=== PATIENT | male | born 1990 | race Caucasian/White ===

== ENCOUNTER 2020-02-26 15:01 | Emergency (ER) | payer BC ==
[2020-02-26] MEDS ORDERED: IBUPROFEN 600 MG TABLET PO ONE (15:16)
[2020-02-26] MEDS ORDERED: ACETAMINOPHEN 325 MG TABLET PO ONE (15:19)
--- NOTE | 2020-02-26 15:19 | ER Document Report ---
ED Medical Screen (RME) - General Chief Complaint: Puncture Wound Stated Complaint: LACERATION LEFT LEG Time Seen by Provider: 02/26/20 15:15 Mode of Arrival: Wheelchair Information source: Patient Notes: 29-year-old male presented to ED for puncture wound to the left lower leg. He states about 4 hours ago he was welding a a hot piece of round stock and when he was putting pressure on it he did not realize how much pressure the ground better went through his left lower leg red hot. He states he cannot get it to stay stop bleeding every time he tries to walk on it it bleeds. He states he can put some pressure on it but it causes it to bleed and is very painful. He states he went to the urgent care and they sent him straight to the emergency room. He states he does not smoke drinks maybe once a week and does not use any illicit drugs. He does weigh about 76 kg I did weigh him with the chair and and minus the chair. I have greeted and performed a rapid initial assessment of this patient. A comprehensive ED assessment and evaluation of the patient, analysis of test results and completion of medical decision making process will be conducted by an additional ED providers. Physical Exam - Vital signs Vitals: Temp Pulse Resp BP Pulse Ox 98.1 F 87 16 131/80 H 100 02/26/20 15:07 02/26/20 15:07 02/26/20 15:07 02/26/20 15:07 02/26/20 15:07 Course - Vital Signs Vital signs: Temp Pulse Resp BP Pulse Ox 98.1 F 87 16 131/80 H 100 02/26/20 15:07 02/26/20 15:07 02/26/20 15:07 02/26/20 15:07 02/26/20 15:07
--- NOTE | 2020-02-26 15:49 | RADIOLOGY REPORT (SQ) ---
EXAM DESCRIPTION: TIBIA FIBULA LEFT IMAGES COMPLETED DATE/TIME: 02/26/2020 3:34 pm REASON FOR STUDY: Puncture wound with a red hot wire @ 4 hours ago COMPARISON: None. NUMBER OF VIEWS: Two views. TECHNIQUE: Two radiographic images acquired of the left tibia and fibula to include the knee and ank le in at least one projection. LIMITATIONS: None. FINDINGS: MINERALIZATION: Normal. BONES: No acute fracture or dislocation. No worrisome bone lesions. SOFT TISSUES: No obvious swelling or foreign body. OTHER: No other significant finding. IMPRESSION: NEGATIVE STUDY OF THE LEFT TIBIA AND FIBULA. NO RADIOGRAPHIC EVIDENCE OF ACUTE INJURY. TECHNICAL DOCUMENTATION: JOB ID: [id number] 2010 [employer]- All Rights Reserved Reading location - IP/workstation name: [email or web address]
[2020-02-26] MEDS ORDERED: HYDROCODONE/ACETAMINOPHEN 5-325 MG (6 TAB/ER DISP) PO PRN (17:47)
[2020-02-26] MEDS ORDERED: HYDROCODONE/ACETAMINOPHEN 5-325 MG TABLET PO ONE (17:47)
--- NOTE | 2020-02-26 17:47 | ER Document Report ---
ED General - General Chief Complaint: Leg Injury Stated Complaint: LACERATION LEFT LEG Time Seen by Provider: 02/26/20 15:15 Mode of Arrival: Wheelchair Information source: Patient Notes: ED Medical Screen ([facility]) - General Chief Complaint: Puncture Wound Stated Complaint: LACERATION LEFT LEG Time Seen by Provider: 02/26/20 15:15 Mode of Arrival: Wheelchair Information source: Patient Notes: 29-year-old male presented to ED for puncture wound to the left lower leg. He states about 4 hours ago he was welding a a hot piece of round stock and when he was putting pressure on it he did not realize how much pressure the ground better went through his left lower leg red hot. He states he cannot get it to stay stop bleeding every time he tries to walk on it it bleeds. He states he can put some pressure on it but it causes it to bleed and is very painful. He states he went to the urgent care and they sent him straight to the emergency room. He states he does not smoke drinks maybe once a week and does not use any illicit drugs. He does weigh about 76 kg I did weigh him with the chair and and minus the chair. MY NOTES 29-year-old male arrives with chief complaint of injury to his left anterior conley. He was welding on a trailer when the spring hands popped off his torch and something impacted his fire resistant trousers tearing it and L- shaped. He also had left anterior skin tear approximately 1 1/2 cm diameter and L-shaped as well. Patient reports he has severe pain when he attempts to walk and also has bleeding that he attempted to get stopped by elevating his left lower extremity without success. He went to the urgent care and he was sent straight to the emergency room. Coban and 4 x 4's allowed hemostasis and I was able to evaluate this at [address]. I advised nursing staff that we will use 3-0 Prolene and lidocaine with epi and cleaned the wound prior to suturing place him in nonweightbearing crutches and will give him a tetanus shot today. He had a Tdap around 6 years ago. Patient reports he tried to elevate his leg in his truck for least 3 hours and when he attempted to put his leg down it began to bleed. When he went to urgent care they looked at the wound and found it was too deep with bleeding and therefore put some Coban and 4 x 4 on sent him to the ER. - Related Data Allergies/Adverse Reactions: No Known Allergies Allergy (Verified 02/26/20 16:57) Home Medications: adderall, vyvanse Past Medical History - General Information source: Patient - Social History Smoking Status: Never Smoker Cigarette use (# per day): No Chew tobacco use (# tins/day): No Smoking Education Provided: No Frequency of alcohol use: Social Drug Abuse: None Lives with: Family Family History: Reviewed & Not Pertinent Patient has suicidal ideation: No Patient has homicidal ideation: No Review of Systems - Review of Systems Constitutional: No symptoms reported EENT: No symptoms reported Cardiovascular: No symptoms reported Respiratory: No symptoms reported Gastrointestinal: No symptoms reported Genitourinary: No symptoms reported Male Genitourinary: No symptoms reported Musculoskeletal: No symptoms reported Skin: See HPI, Other - Laceration left anterior leg Hematologic/Lymphatic: No symptoms reported Neurological/Psychological: No symptoms reported Physical Exam - Vital signs Vitals: Temp Pulse Resp BP Pulse Ox 98.1 F 87 16 131/80 H 100 02/26/20 15:07 02/26/20 15:07 02/26/20 15:07 02/26/20 15:07 02/26/20 15:07 Interpretation: Normal - General General appearance: Appears well, Alert - HEENT Head: Normocephalic, Atraumatic Eyes: Normal Pupils: PERRL - Respiratory Respiratory status: No respiratory distress Chest status: Nontender Breath sounds: Normal Chest palpation: Normal - Cardiovascular Rhythm: Regular Heart sounds: Normal auscultation Murmur: No - Abdominal Inspection: Normal Distension: No distension Bowel sounds: Normal Tenderness: Nontender Organomegaly: No organomegaly - Rectal Prostate: Other - deferred - Genitourinary Scrotum: Other - deferred - Back Back: Normal, Nontender - Extremities General upper extremity: Normal inspection, Nontender, Normal color, Normal ROM, Normal temperature General lower extremity: Normal inspection, Nontender, Normal color, Normal ROM, Normal temperature, Normal weight bearing. No: Rambo's sign - Neurological Neuro grossly intact: Yes Cognition: Normal Orientation: AAOx4 [place] Coma Scale Eye Opening: Spontaneous [place] Coma Scale Verbal: Oriented [place] Coma Scale Motor: Obeys Commands [place] Coma Scale Total: 15 Speech: Normal Motor strength normal: LUE, RUE, LLE, RLE Sensory: Normal - Psychological Associated symptoms: Normal affect, Normal mood - Skin Skin Temperature: Warm Skin Moisture: Dry Skin irregularity: Laceration - To the left medial conley approximately just 3 cm distal of the tibial tuberosity and the laceration is approximately 1/2 cm in length but also 1/2 cm in depth. Course - Vital Signs Vital signs: Temp Pulse Resp BP Pulse Ox 98.1 F 87 16 131/80 H 100 02/26/20 15:07 02/26/20 15:07 02/26/20 15:07 02/26/20 15:07 02/26/20 15:07 - Diagnostic Test Radiology reviewed: Reports reviewed Procedures - Laceration/Wound Repair Left Lower Leg Time completed: 18:18 Wound length (cm): 1.5 Wound's Depth, Shape: Into muscle, Linear Laceration pre-procedure: Shur-Clens applied Anesthetic type: 1% Lidocaine w/epi Volume Anesthetic (mLs): 25 Wound explored: Contaminated Wound Debrided: Minimal Wound Repaired With: Sutures Suture Size/Type: 3:0, Prolene Number of Sutures: 3 Layer Closure?: No Post-procedure wound care: Sterile dressing applied Post-procedure NV exam normal: Yes Complications: No Discharge - Discharge Clinical Impression: Laceration of leg, left Qualifiers: Encounter type: initial encounter Qualified Code(s): S81.812A - Laceration without foreign body, left lower leg, initial encounter Condition: Good Disposition: HOME, SELF-CARE Additional Instructions: Keep wound clean and dry; continue with crutches for the next 3 to 5 days; sutures out in 14 days; take medicines as directed; encourage fluids; try to eat some yogurt on a daily basis to keep good bacteria in your intestine to avoid diarrhea. Your antibiotic may try to kill of good bacteria in your intestines to cause diarrhea. Be aware of inflammation redness cellulitis of your skin. If this occurs follow-up with personal doctor or with ER. Good luck with your 's impending delivery and happiness on of your child. Prescriptions: Amoxicillin/Potassium Clav [Augmentin 875-125 Tablet] 1 tab PO BID 7 Days #14 tab Forms: Return to Work
[2020-02-26] MEDS ORDERED: LIDOCAINE 0.5%/EPINEPHRINE INJ 50 ML VIAL INJ ONE (17:48)
[2020-02-26] MEDS ORDERED: DIPH/PERTUSS(ACELL)/TETANUS VAC/PF 0.5 ML SYR (>=10YO) IM ONE (17:53)
[2020-02-26 18:33] VITALS: BP 145/66
== END 2020-02-26 18:32 | disposition home or self-care (01) ==
LOC: ER 15:01
DX: S81.812A Laceration without foreign body, left lower leg, initial encounter (principal); W26.8XXA Contact with other sharp object(s), not elsewhere classified, initial encounter; Z23 Encounter for immunization
CPT/HCPCS: 99284; 96372; 73590; 90715; 12001; J3490